=== PATIENT | female | born 1990 | race African-American/Black ===

== ENCOUNTER 2021-03-08 02:50 | Inpatient (IN) | payer OTHER ==
[2021-03-08] MEDS ORDERED: AMPICILLIN SODIUM 2 GM VIAL ONE (03:53)
[2021-03-08] MEDS ORDERED: AMPICILLIN - 2 GM in SODIUM CHLORIDE 100 ML IVPB ONE (04:20)
[2021-03-08 04:48] LABS: BASO % 0.4 % (0-2.0); EOS % 0.3 % (0-4.5); HEMATOCRIT 33.9 % (32.4-45.2); HEMOGLOBIN 11.6 GM/dL (10.7-15.3); LYMPH % 31.7 % (8-40); MCH 26.7 pg (25.7-33.7); MCHC 34.3 g/dl (32.0-36.0); MEAN CELL VOLUME 77.8 fl (80-96); MEAN PLT VOLUME 7.9 fl (7.5-11.1); NEUT % 57.6 % (42.8-82.8); PLATELET COUNT 324 10^3/uL (134-434); RBC 4.35 M/mm3 (3.60-5.2); RDW 14.8 % (11.6-15.6); WHITE BLOOD COUNT 11.3 K/mm3 (4.0-10.0)
[2021-03-08 04:54] LABS: INR 0.94 (0.83-1.09); PROTHROMBIN TIME (PATIENT) 11.4 SEC (9.7-13.0)
[2021-03-08 04:56] LABS: ACTIVATED PTT 26.4 SECONDS (25.2-36.5)
[2021-03-08] MEDS ORDERED: ELECTROLYTE-148 SOLN 1,000 ML IV SCH (05:00)
[2021-03-08] MEDS ORDERED: OXYTOCIN 30 UNITS in 0.9% NS 30 UNIT/500 ML INFUS.BAG IVPB SCH (05:00)
[2021-03-08 05:30] VITALS: BMI 36.1
[2021-03-08 05:35] LABS: SYPHILIS W/ RPR CONF NON-REACTIVE (NONREACTIVE)
[2021-03-08 05:47] LABS: CALCIUM 8.7 mg/dL (8.5-10.1)
[2021-03-08 05:48] LABS: BLOOD UREA NITROGEN 5.9 mg/dL (7-18)
[2021-03-08] MEDS ORDERED: OXYTOCIN 30 UNITS in 0.9% NS 30 UNIT/500 ML INFUS.BAG IVPB ONE (05:50)
[2021-03-08 05:51] LABS: CREATININE 0.7 mg/dL (0.55-1.3)
[2021-03-08 06:03] LABS: HIV INTERPRETATION NEGATIVE (NEGATIVE)
[2021-03-08] MEDS ORDERED: AMPICILLIN SODIUM 1 GM VIAL ONE (08:15)
[2021-03-08] MEDS ORDERED: LIDOCAINE HCL 1% PRESERVATIVE FREE - 30ML VIAL ONE (08:41)
[2021-03-08] MEDS ORDERED: OXYTOCIN 20 UNITS in 0.9% NS 20 UNIT/1,000 ML INFUS.BAG IV ONE (08:41)
[2021-03-08] MEDS ORDERED: AMPICILLIN - 1 GM in SODIUM CHLORIDE 100 ML IVPB SCH (08:50)
[2021-03-08] MEDS ORDERED: BENZOCAINE 28 GM HEMORRHOIDAL OINTMENT TP PRN (09:38)
[2021-03-08] MEDS ORDERED: oxyCODONE HCL 5 MG TABLET PO PRN (09:38)
[2021-03-08] MEDS ORDERED: METHYLERGONOVINE MALEATE 0.2 MG/1 ML AMP IM PRN (09:38)
[2021-03-08] MEDS ORDERED: WITCH HAZEL 50% (TUCKS) 40 PAD/JAR PAD TP PRN (09:38)
[2021-03-08] MEDS ORDERED: BENZOCAINE 20% 57 GM BOTTLE TP PRN (09:38)
[2021-03-08] MEDS ORDERED: BISACODYL 10 MG SUPP.RECT RC PRN (09:38)
[2021-03-08] MEDS ORDERED: ACETAMINOPHEN 325 MG TABLET (FP) PO PRN (09:38)
[2021-03-08] MEDS ORDERED: OXYTOCIN 20 UNITS in 0.9% NS 20 UNIT/1,000 ML INFUS.BAG IV SCH (09:45)
[2021-03-08] MEDS ORDERED: valACYclovir HCL 500 MG TABLET (FP) PO SCH (10:00)
[2021-03-08 10:57] LABS: CORD BASE EXCESS -5.6 mmol/L (0-2); CORD HCO3 21.4 mmHg (20-29); CORD PCO2 47.2 mmHg (30-78); CORD pH 7.275 (7.14-7.44)
[2021-03-08 11:00] LABS: CORD BASE EXCESS -4.9 mmol/L (0-2); CORD HCO3 22.1 mmHg (20-29); CORD PCO2 47.7 mmHg (30-78); CORD pH 7.284 (7.14-7.44)
[2021-03-09] MEDS: IBUPROFEN 600 MG TABLET (FP) PO PRN ×2 (00:50→21:30)
[2021-03-09 08:28] LABS: BASO % 0.1 % (0-2.0); EOS % 0.3 % (0-4.5); HEMOGLOBIN 10.5 GM/dL (10.7-15.3); MCH 27.1 pg (25.7-33.7); MEAN CELL VOLUME 77.4 fl (80-96); MEAN PLT VOLUME 8.1 fl (7.5-11.1); MONO % 9.8 % (3.8-10.2); NEUT % 67.8 % (42.8-82.8); PLATELET COUNT 285 10^3/uL (134-434); RBC 3.88 M/mm3 (3.60-5.2); RDW 15.1 % (11.6-15.6); WHITE BLOOD COUNT 16.3 K/mm3 (4.0-10.0)
[2021-03-09] MEDS ORDERED: SENNOSIDES/DOCUSATE COMBO (SENNA PLUS) TABLET (UD) PO PRN (22:00)
[2021-03-10 10:06] VITALS: BP 109/59; PULSE 95; TEMP 97.9
== END 2021-03-10 14:00 | disposition home or self-care (01) | DRG 560 ==
LOC: JLDR 02:50 → J3W 20:33
PROVIDERS: ADMIT Obstetrics & Gynecology; ATTEND Obstetrics & Gynecology
PROC: 10E0XZZ Delivery of Products of Conception, External Approach (ICD-10-PCS; principal; 2021-03-08)
DX: O99.824 Streptococcus B carrier state complicating childbirth (principal); O99.02 Anemia complicating childbirth; D64.89 Other specified anemias; O26.03 Excessive weight gain in pregnancy, third trimester; O98.52 Other viral diseases complicating childbirth; B00.9 Herpesviral infection, unspecified; Z87.59 Personal history of other complications of pregnancy, childbirth and the puerperium; Z3A.39 39 weeks gestation of pregnancy; Z37.0 Single live birth
CPT/HCPCS: 36415; 36600; 59409; 80048; 82803; 85025; 85610; 85730; 86780; 86850; 86900; 86901; 87389; C9803; U0003; U0005